=== PATIENT | male | born 1975 | race Caucasian/White ===

== ENCOUNTER 2025-01-01 12:18 | Emergency (ER) | payer OTHER ==
[~2025-01-01] VITALS: Ht 170.2 cm; Wt 68.0 kg
[2025-01-01] MEDS ORDERED: KETOROLAC TROMETHAMINE 15 MG INJ ONE (12:48)
[2025-01-01 12:52] LABS: BASOPHILS # (AUTO) 0.1 K/UL (0.0-0.2); BASOPHILS % (AUTO) 0.9 % (0.0-2.0); EOSINOPHILS # (AUTO) 0.1 K/uL (0.0-0.7); EOSINOPHILS % (AUTO) 2.5 % (0.0-7.0); HEMATOCRIT 43.4 % (36.7-47.1); HEMOGLOBIN 14.7 g/dL (12.5-16.3); LYMPHOCYTES # (AUTO) 1.5 K/uL (0.8-4.8); MEAN CORPUSCULAR HEMOGLOBIN 30.6 uug (23.8-33.4); MEAN CORPUSCULAR HGB CONC 34 g/dL (32.5-36.3); MEAN CORPUSCULAR VOLUME 90.1 fL (73.0-96.2); MONOCYTES # (AUTO) 0.4 K/uL (0.1-1.30); MONOCYTES % (AUTO) 6.3 % (0.0-11.0); NEUTROPHILS # (AUTO) 3.7 K/uL (1.8-8.9); NEUTROPHILS % (AUTO) 64.3 % (38.5-71.5); PLATELET COUNT (AUTO) 203 K/uL (152-348); RED BLOOD CELL COUNT(AUTO) 4.82 MIL/uL (4.06-5.63); RED CELL DISTRIBUTION WIDTH 12.4 % (12.1-16.2); WHITE BLOOD COUNT (AUTO) 5.7 K/uL (3.6-10.2)
[2025-01-01] MEDS: IV NORMAL SALINE 1000 ML BAG IV ONE (12:52)
[2025-01-01] MEDS: KETOROLAC TROMETHAMINE 15 MG INJ IVP ONE (12:53)
[2025-01-01 13:05] LABS: DIFFERENTIAL COMMENT 1
[2025-01-01 13:17] LABS: CALCIUM 9.2 mg/dL (8.5-10.1); CREATININE 0.8 mg/dL (0.6-1.3); POTASSIUM 3.7 mmol/L (3.5-5.1)
[2025-01-01 13:22] LABS: BILIRUBIN,DIRECT 0.1 mg/dL (0.0-0.2); BILIRUBIN,TOTAL 0.6 mg/dL (0.2-1.0); TOTAL PROTEIN, SERUM 7.4 g/dL (6.4-8.2)
[2025-01-01] MEDS: FENTANYL CITRATE 100 MCG/2 ML AMPUL IV ONE (13:33)
[2025-01-01] MEDS: ONDANSETRON 4 MG/2 ML VIAL IV ONE (13:34)
[2025-01-01 13:52] LABS: *BILIRUBIN,URIN NEGATIVE (NEGATIVE); *BLOOD, URINE 1+ (NEGATIVE); *CLARITY,URINE CLEAR (CLEAR); *COLOR,URINE YELLOW (YELLOW); *KETONES,URINE NEGATIVE (NEGATIVE); *PROTEIN,URINE NEGATIVE (NEGATIVE); *UROBILINOGEN,URINE 0.2 E.U./dl (NORMAL); LEUKOCYTE ESTERASE ,URINE NEGATIVE (NEGATIVE); NITRITE, URINE NEGATIVE (NEGATIVE); PH,URINE 7.5 (5.0-8.0); UGLUCOSE NEGATIVE (NEGATIVE)
[2025-01-01] MEDS ORDERED: IBUP-1955 PO (13:53)
[2025-01-01] MEDS ORDERED: LIDO30AD10 TP (13:53)
[2025-01-01 14:04] LABS: SQUAMOUS EPITHELIAL CELL,UR FEW /HPF (NONE SEEN); WBC,URINE 0-3 /HPF (0-3)
[2025-01-01] MEDS: IBUPROFEN 600 MG TABLET PO ONE (14:45)
[2025-01-01] MEDS: LIDOCAINE 5% PATCH TD ONE (14:45)
[2025-01-01 15:13] VITALS: BP 133/87; O2SAT 100
== END 2025-01-01 15:13 | disposition home or self-care (01) ==
LOC: ER 12:18
DX: N20.0 Calculus of kidney (principal)
CPT/HCPCS: 99284; 74176; 96360; 80076; 80048; 81001; 83690; 85025; 36415; J7040; A4606; A4663; J1885